=== PATIENT | female | born 1975 | race Caucasian/White ===

== ENCOUNTER 2017-02-26 08:58 | Emergency (ER) | payer SELFPAY ==
[2017-02-26] MEDS ORDERED: OXYCODONE-ACETAMINOPHEN 5-325 MG TABLET PO ONE (10:10)
[2017-02-26] MEDS ORDERED: PROMETHAZINE HCL 25 MG TABLET PO ONE (10:10)
--- NOTE | 2017-02-26 10:11 | ER Document Report ---
ED Medical Screen (RME) - General Chief Complaint: Abscess Stated Complaint: ABSCESS Notes: Patient describes a perianal abscess that has been present for a month or more. Saw her primary care physician recently who said it wasn't ready to be opened. It's now bigger and more painful and this morning began to drain spontaneously. Not diabetic. TRAVEL OUTSIDE OF THE [place] IN LAST 30 DAYS: No - Related Data Allergies/Adverse Reactions: No Known Allergies Allergy (Verified 02/26/17 09:08) Past Medical History - Past Medical History Cardiac Medical History: Reports: Hx Hypertension Denies: Hx Heart Attack Pulmonary Medical History: Denies: Hx Asthma, Hx Bronchitis, Hx COPD, Hx Pneumonia Neurological Medical History: Reports: Hx Migraine. Denies: Hx Seizures Renal/ Medical History: Denies: Hx Peritoneal Dialysis Musculoskeltal Medical History: Reports Hx Arthritis - RA Skin Medical History: Reports Hx Cellulitis Psychiatric Medical History: Reports: Hx Anxiety, Hx Depression Past Surgical History: Reports: Hx Adenoidectomy, Hx Gynecologic Surgery - NovaSure, Hx Myringotomy, Hx Oral Surgery - Multiple teeth surgically removed, Hx Tonsillectomy, Hx Tubal Ligation - Immunizations Immunizations up to date: Yes Hx Diphtheria, Pertussis, Tetanus Vaccination: Yes - < 5 years Physical Exam - Vital signs Vitals: Temp Pulse Resp BP Pulse Ox 99.8 F 79 18 154/91 H 98 02/26/17 09:10 02/26/17 09:10 02/26/17 09:10 02/26/17 09:10 02/26/17 09:10 Course - Vital Signs Vital signs: Temp Pulse Resp BP Pulse Ox 99.8 F 79 18 154/91 H 98 02/26/17 09:10 02/26/17 09:10 02/26/17 09:10 02/26/17 09:10 02/26/17 09:10
--- NOTE | 2017-02-26 10:47 | ER Document Report ---
ED Skin Rash/Insect Bite/Abscs - General Chief Complaint: Abscess Stated Complaint: ABSCESS Mode of Arrival: Ambulatory Information source: Patient Notes: Patient is a 41-year-old female, with history of multiple abscesses, presenting to the emergency department concerned of an abscess near her anus that began in late January. Patient states she saw her primary care physician, Dr. Gillette, for an ear infection, and mentioned this abscess to him and he prescribed an antibiotic, which she failed to complete secondary to yeast infection. Patient states that the abscess has now grown to be the largest abscess that she is had yet, and she states that she has a fever of 99.9 after taking Aleve at 0630 today. Patient states she felt her abscess open up this morning, but states that she knows that it still needs to be drained more and cleaned. TRAVEL OUTSIDE OF THE [place] IN LAST 30 DAYS: No - HPI Patient complains to provider of: Tender/swollen area Onset: Other - Late January Onset/Duration: Gradual, Worse Quality of pain: Sharp Similar symptoms previously: Yes - Related Data Allergies/Adverse Reactions: No Known Allergies Allergy (Verified 02/26/17 09:08) Past Medical History - General Information source: Patient - Social History Smoking Status: Smoker,Current Status Unk Family History: Reviewed & Not Pertinent, Hypertension, Other - MOM- MRSA Patient has suicidal ideation: No Patient has homicidal ideation: No - Past Medical History Cardiac Medical History: Reports: Hx Hypertension Neurological Medical History: Reports: Hx Migraine Musculoskeltal Medical History: Reports Hx Arthritis - RA Skin Medical History: Reports Hx Cellulitis Psychiatric Medical History: Reports: Hx Anxiety, Hx Depression Past Surgical History: Reports: Hx Adenoidectomy, Hx Gynecologic Surgery - NovaSure, Hx Myringotomy, Hx Oral Surgery - Multiple teeth surgically removed, Hx Tonsillectomy, Hx Tubal Ligation - Immunizations Immunizations up to date: Yes Hx Diphtheria, Pertussis, Tetanus Vaccination: Yes - < 5 years Review of Systems - Review of Systems Constitutional: No symptoms reported EENT: No symptoms reported Cardiovascular: No symptoms reported Respiratory: No symptoms reported Gastrointestinal: No symptoms reported Genitourinary: No symptoms reported Female Genitourinary: No symptoms reported Musculoskeletal: No symptoms reported Skin: See HPI, Other - Possible abscess Hematologic/Lymphatic: No symptoms reported Neurological/Psychological: No symptoms reported -: Yes All other systems reviewed and negative Physical Exam - Vital signs Vitals: Temp Pulse Resp BP Pulse Ox 99.8 F 79 18 154/91 H 98 02/26/17 09:10 02/26/17 09:10 02/26/17 09:10 02/26/17 09:10 02/26/17 09:10 Interpretation: Normal - General General appearance: Appears well, Alert - HEENT Head: Normocephalic, Atraumatic Eyes: Normal Pupils: PERRL - Respiratory Respiratory status: No respiratory distress Chest status: Nontender Breath sounds: Normal Chest palpation: Normal - Cardiovascular Rhythm: Regular Heart sounds: Normal auscultation Murmur: No - Abdominal Inspection: Normal Distension: No distension Bowel sounds: Normal Tenderness: Nontender Organomegaly: No organomegaly - Back Back: Normal, Nontender - Extremities General upper extremity: Normal inspection, Nontender General lower extremity: Normal inspection, Nontender - Neurological Neuro grossly intact: Yes Cognition: Normal Orientation: AAOx4 Samy Coma Scale Eye Opening: Spontaneous Samy Coma Scale Verbal: Oriented Samy Coma Scale Motor: Obeys Commands Samy Coma Scale Total: 15 Speech: Normal - Psychological Associated symptoms: Normal affect, Normal mood - Skin Skin Temperature: Warm Skin Moisture: Dry Skin irregularity: Abscess Location of irregularity: Other - Left medial buttock Irregularity with: Swelling, Tenderness, Inflammation, Weeping Course - Vital Signs Vital signs: Temp Pulse Resp BP Pulse Ox 98.4 F 63 20 117/63 100 02/26/17 11:55 02/26/17 11:55 02/26/17 11:55 02/26/17 11:55 02/26/17 11:55 Procedures - Incision and Drainage Left Medial Buttock Time completed: 11:44 Type: Simple, Single Anesthetic type: 1% Lidocaine w/epi mL's of anesthetic: 8 Blade size: 11 I&D procedure: Shurclens applied, Iodoform packing placed Incision Method: Incision made by scalpel Discharge - Discharge Clinical Impression: Abscess of buttock, left Condition: Good Disposition: HOME, SELF-CARE Instructions: Abscess ([facility]), Trimethoprim-Sulfa ([facility]) Additional Instructions: Packing out in 3 days. Keep area clean with soap and water. Return for worsening or concern. Prescriptions: Hydrocodone/Acetaminophen [[place] 5-325 mg Tablet] 1 tab PO Q4HP PRN #14 tablet PRN Reason: For Pain Fluconazole [Diflucan] 150 mg PO ONCE PRN #1 tablet PRN Reason: Sulfamethoxazole/Trimethoprim [Bactrim Ds Tablet] 1 each PO BID #20 tablet Forms: Elevated Blood Pressure, Smoking Cessation Education Referrals: STEPHANIE GILLETTE MD [Primary Care Provider] - Follow up in 3-5 days Scribe Documentation - Scribe Written by Scribe:: Candice Anna 02/26/2017 1046 acting as scribe for :: Tyson
[2017-02-26] MEDS ORDERED: LIDOCAINE 1%/EPINEPHRINE INJ 20 ML VIAL INJ ONE (10:52)
[2017-02-26 11:56] VITALS: BP 117/63
== END 2017-02-26 11:55 | disposition home or self-care (01) ==
LOC: ER 08:58
PROC: 0H98XZZ Drainage of Buttock Skin, External Approach (ICD-10-PCS; principal; 2017-02-26)
DX: L02.31 Cutaneous abscess of buttock (principal); R50.9 Fever, unspecified; F17.200 Nicotine dependence, unspecified, uncomplicated
CPT/HCPCS: 99283; 10060; J3490

== ENCOUNTER 2017-05-26 06:46 | Emergency (ER) | payer SELFPAY ==
[2017-05-26] MEDS ORDERED: HYDROMORPHONE HCL INJ/PF 2 MG/ML AMPULE IM ONE (07:01)
[2017-05-26] MEDS ORDERED: LIDOCAINE 1% INJ-PF (10 MG/ML) 30 ML SDV INJ ONE (07:01)
[2017-05-26] MEDS ORDERED: DIAZEPAM INJ 10 MG/2 ML DISP.SYRIN IM ONE (07:01)
--- NOTE | 2017-05-26 07:02 | ER Document Report ---
ED General - General Chief Complaint: Abscess Stated Complaint: ABSCESS Time Seen by Provider: 05/26/17 06:55 Mode of Arrival: Ambulatory Information source: Patient Notes: 41-year-old female presents with complaints of abscess of the right buttocks. Patient notes symptoms have been ongoing for 1 week, patient has had multiple abscesses in the past, patient states she is very anxious about this. She does admit to fevers and pain down her leg TRAVEL OUTSIDE OF THE [place] IN LAST 30 DAYS: No - HPI Onset: Last week Onset/Duration: Persistent Quality of pain: Achy Severity: Mild Pain Level: 1 Associated symptoms: Other Exacerbated by: Denies Relieved by: Denies Similar symptoms previously: Yes Recently seen / treated by doctor: Yes - Related Data Allergies/Adverse Reactions: No Known Allergies Allergy (Verified 02/26/17 09:08) Past Medical History - Social History Smoking Status: Never Smoker Cigarette use (# per day): No Chew tobacco use (# tins/day): No Smoking Education Provided: No Family History: Reviewed & Not Pertinent, Hypertension, Other - MOM- MRSA Patient has suicidal ideation: No Patient has homicidal ideation: No - Past Medical History Cardiac Medical History: Reports: Hx Hypertension Denies: Hx Heart Attack Pulmonary Medical History: Denies: Hx Asthma, Hx Bronchitis, Hx COPD, Hx Pneumonia Neurological Medical History: Reports: Hx Migraine. Denies: Hx Seizures Renal/ Medical History: Denies: Hx Peritoneal Dialysis Musculoskeltal Medical History: Reports Hx Arthritis - RA Skin Medical History: Reports Hx Cellulitis Psychiatric Medical History: Reports: Hx Anxiety, Hx Depression Past Surgical History: Reports: Hx Adenoidectomy, Hx Gynecologic Surgery - NovaSure, Hx Myringotomy, Hx Oral Surgery - Multiple teeth surgically removed, Hx Tonsillectomy, Hx Tubal Ligation - Immunizations Immunizations up to date: Yes Hx Diphtheria, Pertussis, Tetanus Vaccination: Yes - < 5 years Review of Systems - Review of Systems Notes: REVIEW OF SYSTEMS: CONSTITUTIONAL : Admits to fever EENT: Denies eye, ear, throat, or mouth pain or symptoms. Denies nasal or sinus congestion or discharge. Denies throat, tongue, or mouth swelling or difficulty swallowing. CARDIOVASCULAR: Denies chest pain. Denies palpitations or racing or irregular heart beat. Denies ankle edema. RESPIRATORY: Denies cough, cold, or chest congestion. Denies shortness of breath, difficulty breathing, or wheezing. GASTROINTESTINAL: Denies abdominal pain or distention. Denies nausea, vomiting , or diarrhea. Denies blood in vomitus, stools, or per rectum. Denies black, tarry stools. Denies constipation. GENITOURINARY: Denies difficulty urinating, painful urination, burning, frequency, blood in urine, or discharge. FEMALE GENITOURINARY: Denies vaginal bleeding, heavy or abnormal periods, irregular periods. Denies vaginal discharge or odor. MUSCULOSKELETAL: Denies back or neck pain or stiffness. Denies joint pain or swelling. SKIN: Right buttocks abscess. HEMATOLOGIC : Denies easy bruising or bleeding. LYMPHATIC: Denies swollen, enlarged glands. NEUROLOGICAL: Denies confusion or altered mental status. Denies passing out or loss of consciousness. Denies dizziness or lightheadedness. Denies headache. Denies weakness or paralysis or loss of use of either side. Denies problems with gait or speech. Denies sensory loss, numbness, or tingling. Denies seizures. PSYCHIATRIC: Denies anxiety or stress. Denies depression, suicidal ideation, or homicidal ideation. ALL OTHER SYSTEMS REVIEWED AND NEGATIVE. PHYSICAL EXAMINATION: GENERAL: Well-appearing, well-nourished and in no acute distress. HEAD: Atraumatic, normocephalic. EYES: Pupils equal round and reactive to light, extraocular movements intact, conjunctiva are normal. ENT: Nares patent, oropharynx clear without exudates. Moist mucous membranes. NECK: Normal range of motion, supple without lymphadenopathy LUNGS: Breath sounds clear to auscultation bilaterally and equal. No wheezes rales or rhonchi. HEART: Regular rate and rhythm without murmurs ABDOMEN: Soft, nontender, nondistended abdomen. No guarding, no rebound. No masses appreciated. Female : deferred Musculoskeletal: Normal range of motion, no pitting or edema. No cyanosis. NEUROLOGICAL: Cranial nerves grossly intact. Normal speech, normal gait. Normal sensory, motor exams PSYCH: Normal mood, normal affect. SKIN: 9 x 5 cm abscess of the right buttocks without involvement of the rectum Dictation was performed using [employer] voice recognition software Physical Exam - Vital signs Vitals: Temp Pulse Resp BP Pulse Ox 98.0 F 86 20 119/75 97 05/26/17 06:48 05/26/17 06:48 05/26/17 06:48 05/26/17 06:48 05/26/17 06:48 Course - Re-evaluation Re-evalutation: 05/26/17 07:25 There is a large abscess noted with area of cellulitis approximately 4 cm around the abscess, patient was given IM medication and area will be incised and drained started on antibiotics After performing a Medical Screening Examination, I estimate there is LOW risk for OPEN FRACTURE, COMPARTMENT SYNDROME, TENDON RUPTURE, ACUTE NEUROVASCULAR INJURY, or RETAINED FOREIGN BODY, thus I consider the discharge disposition reasonable. Also, there is no evidence or peritonitis, sepsis, or toxicity. I have reevaluated this patient multiple times and no significant life threatening changes are noted. The patient and I have discussed the diagnosis and risks, and we agree with discharging home with close follow-up with the understanding that symptoms and presentations can change. We also discussed returning to the Emergency Department immediately if new or worsening symptoms occur. We have discussed the symptoms which are most concerning (e.g., changing or worsening pain, fever, numbness, weakness, cool or painful digits) that necessitate immediate return. - Vital Signs Vital signs: Temp Pulse Resp BP Pulse Ox 98.0 F 86 20 119/75 97 05/26/17 06:48 05/26/17 06:48 05/26/17 06:48 05/26/17 06:48 05/26/17 06:48 Procedures - Incision and Drainage Right Buttock Time completed: 07:25 Type: Complex, Multiple Anesthetic type: 1% Lidocaine mL's of anesthetic: 15 Blade size: 11 I&D procedure: Betadine prep applied, Sterile dressing applied Incision Method: Incision made by scalpel Amount/type of drainage: large amount of pus drained Notes: 05/26/17 07:26 Discharge - Discharge Clinical Impression: Abscess of right buttock Cellulitis Qualifiers: Site of cellulitis: buttock Qualified Code(s): L03.317 - Cellulitis of buttock Condition: Stable Disposition: HOME, SELF-CARE Instructions: Abscess ([facility]), Post Incision and Drainage Additional Instructions: Follow up with your physician tomorrow for further care or return to the ED IMMEDIATELY if symptoms worsen or new concerns occur. If you cannot afford to follow up with your primary care physician a list of low cost clinics have been provided at the end of your discharge papers as well. Prescriptions: Cephalexin Monohydrate [Keflex 500 mg Capsule] 500 mg PO QID #40 capsule Sulfamethoxazole/Trimethoprim [Bactrim Ds Tablet] 1 each PO BID #40 tablet
[2017-05-26 09:02] VITALS: BP 130/76
== END 2017-05-26 09:19 | disposition home or self-care (01) ==
LOC: ER 06:46
PROC: 0H98XZZ Drainage of Buttock Skin, External Approach (ICD-10-PCS; principal; 2017-05-26)
DX: L02.31 Cutaneous abscess of buttock (principal); L03.317 Cellulitis of buttock; N89.8 Other specified noninflammatory disorders of vagina; R50.9 Fever, unspecified; M79.606 Pain in leg, unspecified; I10 Essential (primary) hypertension
CPT/HCPCS: 10061; 99283; 96372; 96374; J3360; J3490; J1170; A6266

== ENCOUNTER 2018-07-16 11:27 | Emergency (ER) | payer SELFPAY ==
--- NOTE | 2018-07-16 11:45 | ER Document Report ---
HPI - HPI Pain Level: 4 Context: Patient is a 42-year-old female complaining of pain to her left lateral ankle and left lateral foot 2 days. Patient reports that she had fallen asleep on the couch with her leg bent underneath her and when she stood up to answer the phone she collapsed onto that leg. No previous known injury to that leg. Pain with walking. Associated Symptoms: None Exacerbated by: Movement, Walking Relieved by: Denies Similar symptoms previously: No Recently seen / treated by doctor: No - REPRODUCTIVE Reproductive: DENIES: : - MUSCULOSKELETAL Musculoskeletal: REPORTS: Extremity pain - left ankle and foot Past Medical History - General Information source: Patient - Social History Smoking Status: Current Every Day Smoker Chew tobacco use (# tins/day): No Frequency of alcohol use: None Drug Abuse: None Lives with: Family Family History: Reviewed & Not Pertinent, Hypertension, Other - MOM- MRSA Patient has suicidal ideation: No Patient has homicidal ideation: No - Past Medical History Cardiac Medical History: Reports: Hx Hypertension Denies: Hx Heart Attack Pulmonary Medical History: Denies: Hx Asthma, Hx Bronchitis, Hx COPD, Hx Pneumonia Neurological Medical History: Reports: Hx Migraine. Denies: Hx Seizures Renal/ Medical History: Denies: Hx Peritoneal Dialysis Musculoskeletal Medical History: Reports Hx Arthritis - RA Skin Medical History: Reports Hx Cellulitis Psychiatric Medical History: Reports: Hx Anxiety, Hx Depression Past Surgical History: Reports: Hx Adenoidectomy, Hx Gynecologic Surgery - NovaSure, Hx Myringotomy, Hx Oral Surgery - Multiple teeth surgically removed, Hx Tonsillectomy, Hx Tubal Ligation - Immunizations Immunizations up to date: Yes Hx Diphtheria, Pertussis, Tetanus Vaccination: Yes - < 5 years Vertical Provider Document - CONSTITUTIONAL Agree With Documented VS: Yes Exam Limitations: No Limitations - INFECTION CONTROL TRAVEL OUTSIDE OF THE [place] IN LAST 30 DAYS: No - HEENT HEENT: Atraumatic, PERRLA - NECK Neck: Normal Inspection, Supple - RESPIRATORY Respiratory: Breath Sounds Normal, No Respiratory Distress - CARDIOVASCULAR Cardiovascular: Regular Rate, Regular Rhythm - MUSCULOSKELETAL/EXTREMETIES Musculoskeletal/Extremeties: Tender - Focal tenderness left lateral malleolus and left dorsal lateral foot. Mild soft tissue swelling. Mild ecchymosis. Sensorimotor circulation intact Course - Re-evaluation Re-evalutation: 07/16/18 11:45 After performing a Medical Screening Examination, I estimate there is LOW risk for OPEN FRACTURE, COMPARTMENT SYNDROME, DEEP VENOUS THROMBOSIS, ACUTE TENDON RUPTURE, or NEUROVASCULAR INJURY thus I consider the discharge disposition reasonable. I have reevaluated this patient multiple times and no significant life threatening changes are noted. The patient and I have discussed the diagnosis and risks, and we agree with discharging home to closely follow-up with their primary doctor or the referral orthopedist with the understanding that symptoms and presentations can change. We also discussed returning to the Emergency Department immediately if new or worsening symptoms occur. We have discussed the symptoms which are most concerning (e.g., changing or worsening pain, numbness, weakness) that necessitate immediate return - Vital Signs Vital signs: Temp Pulse Resp BP Pulse Ox 97.5 F 78 18 122/86 H 99 07/16/18 11:33 07/16/18 11:33 07/16/18 11:33 07/16/18 11:33 07/16/18 11:33 Discharge - Discharge Clinical Impression: Closed left ankle fracture Qualifiers: Encounter type: initial encounter Qualified Code(s): S82.892A - Other fracture of left lower leg, initial encounter for closed fracture Condition: Stable Disposition: HOME, SELF-CARE Instructions: Theodore Wrap ([facility]), Ankle Stirrup Splint ([facility]), Use of Crutches ([facility]) , Ice & Elevation ([facility]), Oral Narcotic Medication ([facility]) Additional Instructions: You have a fracture in your left ankle Wear splint and use crutches with no weightbearing until you are seen by the orthopedist Recommend orthopedic evaluation as soon as possible Short course of pain medication is prescribed today, please take as prescribed. Prescriptions: Oxycodone HCl/Acetaminophen [Percocet 5-325 mg Tablet] 1 tab PO Q4H PRN #10 tablet PRN Reason: Referrals: STEPHANIE GILLETTE MD [Primary Care Provider] - Follow up as needed ROD GALVAN MD [ACTIVE STAFF] - Follow up as needed
--- NOTE | 2018-07-16 12:53 | RADIOLOGY REPORT (SQ) ---
EXAM DESCRIPTION: FOOT LEFT COMPLETE; ANKLE LEFT COMPLETE COMPLETED DATE/TIME: 07/16/2018 12:04 pm REASON FOR STUDY: left foot pain; left ankle pain COMPARISON: None. NUMBER OF VIEWS: Three views left foot. Three views left ankle. TECHNIQUE: AP, lateral and oblique radiographic images acquired of the left foot. LIMITATIONS: None. FINDINGS: MINERALIZATION: Normal. BONES: There is a nondisplaced fracture of the lateral malleolus. JOINTS: Changes of a left ankle effusion. SOFT TISSUES: No soft tissue swelling. No foreign body. OTHER: No other significant finding. IMPRESSION: Nondisplaced fracture left lateral malleolus. Left ankle effusion. TECHNICAL DOCUMENTATION: JOB ID: [id number] SC-[id number] 2010 [employer]- All Rights Reserved Reading location - IP/workstation name: [email or web address]
--- NOTE | 2018-07-16 12:53 | RADIOLOGY REPORT (SQ) ---
EXAM DESCRIPTION: FOOT LEFT COMPLETE; ANKLE LEFT COMPLETE COMPLETED DATE/TIME: 07/16/2018 12:04 pm REASON FOR STUDY: left foot pain; left ankle pain COMPARISON: None. NUMBER OF VIEWS: Three views left foot. Three views left ankle. TECHNIQUE: AP, lateral and oblique radiographic images acquired of the left foot. LIMITATIONS: None. FINDINGS: MINERALIZATION: Normal. BONES: There is a nondisplaced fracture of the lateral malleolus. JOINTS: Changes of a left ankle effusion. SOFT TISSUES: No soft tissue swelling. No foreign body. OTHER: No other significant finding. IMPRESSION: Nondisplaced fracture left lateral malleolus. Left ankle effusion. TECHNICAL DOCUMENTATION: JOB ID: [id number] SC-[id number] 2010 [employer]- All Rights Reserved Reading location - IP/workstation name: [email or web address]
[2018-07-16] MEDS ORDERED: OXYCODONE-ACETAMINOPHEN 5-325 MG TABLET PO ONE (13:01)
[2018-07-16 13:18] VITALS: BP 125/82
== END 2018-07-16 13:20 | disposition home or self-care (01) ==
LOC: ER 11:27
DX: S82.892A Other fracture of left lower leg, initial encounter for closed fracture (principal); W18.30XA Fall on same level, unspecified, initial encounter; Y92.009 Unspecified place in unspecified non-institutional (private) residence as the place of occurrence of the external cause; I10 Essential (primary) hypertension; F17.200 Nicotine dependence, unspecified, uncomplicated
CPT/HCPCS: 99283; 73610; 73630; L1902

== ENCOUNTER 2018-08-29 10:40 | Emergency (ER) | payer SELFPAY ==
[2018-08-29 11:02] VITALS: BP 149/88
[2018-08-29] MEDS ORDERED: ACETAMINOPHEN 325 MG TABLET PO ONE (11:26)
--- NOTE | 2018-08-29 11:27 | ER Document Report ---
HPI - HPI Patient complains to provider of: Left ankle pain Onset: Other - July 16 Onset/Duration: Persistent Quality of pain: Achy Pain Level: 5 Context: Patient states that she fractured her ankle on July 16 of this year. Patient does not have insurance and has not been able to follow-up with orthopedics. Patient states she did see her primary doctor earlier this month and he wanted her to have a repeat x-ray of her ankle. Patient states that she would like to have her repeat x-ray performed today. Patient denies any new injury. Associated Symptoms: Other - Left ankle pain Exacerbated by: Standing, Movement, Walking Relieved by: Denies Similar symptoms previously: No Recently seen / treated by doctor: Yes - ROS ROS below otherwise negative: Yes Systems Reviewed and Negative: Yes All other systems reviewed and negative - CONSTITUTIONAL Constitutional: DENIES: Fever - NEURO Neurology: DENIES: Weakness - REPRODUCTIVE Reproductive: DENIES: : - MUSCULOSKELETAL Musculoskeletal: REPORTS: Extremity pain - L ankle. DENIES: Swelling - DERM Skin Color: Normal Skin Problems: None Past Medical History - General Information source: Patient - Social History Smoking Status: Current Every Day Smoker Chew tobacco use (# tins/day): No Smoking Education Provided: Yes Frequency of alcohol use: None Drug Abuse: None Occupation: None Family History: Reviewed & Not Pertinent, Hypertension, Other - MOM- MRSA Patient has suicidal ideation: No Patient has homicidal ideation: No - Past Medical History Cardiac Medical History: Reports: Hx Hypertension Denies: Hx Heart Attack Neurological Medical History: Reports: Hx Migraine. Denies: Hx Seizures Renal/ Medical History: Denies: Hx Peritoneal Dialysis Musculoskeletal Medical History: Reports Hx Arthritis - RA Skin Medical History: Reports Hx Cellulitis Psychiatric Medical History: Reports: Hx Anxiety, Hx Depression Past Surgical History: Reports: Hx Adenoidectomy, Hx Gynecologic Surgery - NovaSure, Hx Myringotomy, Hx Oral Surgery - Multiple teeth surgically removed, Hx Tonsillectomy, Hx Tubal Ligation - Immunizations Immunizations up to date: Yes Hx Diphtheria, Pertussis, Tetanus Vaccination: Yes - < 5 years Vertical Provider Document - CONSTITUTIONAL Agree With Documented VS: Yes Exam Limitations: No Limitations General Appearance: WD/WN, No Apparent Distress - INFECTION CONTROL TRAVEL OUTSIDE OF THE [place] IN LAST 30 DAYS: No - HEENT HEENT: Atraumatic, Normocephalic - NECK Neck: Normal Inspection - RESPIRATORY Respiratory: No Respiratory Distress - CARDIOVASCULAR Pulses: Normal: Dorsalis pedis - MUSCULOSKELETAL/EXTREMETIES Musculoskeletal/Extremeties: MAEW, Tender - Left ankle tenderness over distal fibula, no ecchymosis, no edema, No Edema. negative: Eccymosis - NEURO Level of Consciousness: Awake, Alert, Appropriate Motor/Sensory: No Motor Deficit - DERM Integumentary: Warm, Dry Course - Re-evaluation Re-evalutation: 08/29/18 12:01 Offered patient immobilization, patient declines at this time. Patient shown images of her x-rays. Patient encouraged to follow-up with orthopedics for further evaluation for her persistent ankle pain. Patient is already taking tramadol for chronic pain and encouraged to see her primary doctor to address her medication regimen. - Vital Signs Vital signs: Temp Pulse Resp BP Pulse Ox 98.4 F 63 14 149/88 H 97 08/29/18 10:52 08/29/18 10:52 08/29/18 10:52 08/29/18 10:52 08/29/18 10:52 - Diagnostic Test Radiology reviewed: Pending, Image reviewed, Reports reviewed - Reviewed report from patient's previous ER visit Discharge - Discharge Clinical Impression: hx distal fibula fracture Left ankle pain Qualifiers: Chronicity: unspecified Qualified Code(s): M25.572 - Pain in left ankle and joints of left foot Condition: Stable Disposition: HOME, SELF-CARE Instructions: Theodore Wrap ([facility]), Use of Crutches ([facility]) Additional Instructions: Return immediately for any new or worsening symptoms Followup with your primary care provider, call tomorrow to make a followup appointment Follow-up with orthopedics for further evaluation, call today for an appointment Forms: Smoking Cessation Education Referrals: [facility] [Provider Group] - Follow up tomorrow STEPHANIE GILLETTE MD [Primary Care Provider] - Follow up tomorrow
--- NOTE | 2018-08-29 12:34 | RADIOLOGY REPORT (SQ) ---
EXAM DESCRIPTION: ANKLE LEFT COMPLETE COMPLETED DATE/TIME: 08/29/2018 11:55 am REASON FOR STUDY: left ankle pain history of injury and fracture 07/16/2018 COMPARISON: Left ankle films 07/16/2018 NUMBER OF VIEWS: Three views. TECHNIQUE: AP, lateral, and oblique radiographic images acquired of the left ankle. LIMITATIONS: None. FINDINGS: MINERALIZATION: Normal. BONES: Tiny subacute avulsion fragment off the distal tip of the lateral malleolus marked with arrows , same location as on ankle films 07/16/2018. JOINTS: Tibiotalar joint effusion. Normal alignment at the ankle mortise. SOFT TISSUES: Lateral soft tissue swelling. No radiopaque foreign body. OTHER: No other significant finding. IMPRESSION: Nondisplaced subacute fracture distal tip left lateral malleolus. Left ankle joint effu ranjeet TECHNICAL DOCUMENTATION: JOB ID: [id number] [employer]- All Rights Reserved Reading location - IP/workstation name: [email or web address]
== END 2018-08-29 12:09 | disposition home or self-care (01) ==
LOC: ER 10:40
DX: S82.65XA Nondisplaced fracture of lateral malleolus of left fibula, initial encounter for closed fracture (principal); X58.XXXA Exposure to other specified factors, initial encounter; M25.572 Pain in left ankle and joints of left foot; G89.29 Other chronic pain; Z79.891 Long term (current) use of opiate analgesic; F17.200 Nicotine dependence, unspecified, uncomplicated; I10 Essential (primary) hypertension
CPT/HCPCS: 99283